=== PATIENT | male | born 1990 | race Caucasian/White ===

== ENCOUNTER → 2024-07-10 13:13 | Outpatient (BNVA) | payer OTHER, SELFPAY | PROVIDERS: Family Provider Nurse Practitioner Family; PCP Nurse Practitioner Family; Visit Provider Nurse Practitioner Family | DX: M47.896 Other spondylosis, lumbar region (principal) | CPT/HCPCS: 72100 ==

== ENCOUNTER 2024-07-18 15:55 | Outpatient (CLI) | payer OTHER, SELFPAY ==
--- NOTE | 2024-07-18 16:00 | MR_ITS ---
WS: [id number] MRI LUMBAR SPINE NONCONTRAST TECHNIQUE: Sagittal T1, T2 and STIR imaging. Axial T1 and T2 imaging. CLINICAL INFORMATION: M54.31 - Sciatica, right side COMPARISON: None. FINDINGS: Mild lumbar curve. No acute compression. Disc bulging worse at L5-S1 with a RIGHT subarticular protru marcio. Impingement on the traversing RIGHT S1 nerve root. Disc material measures approximately 6.7 mm in AP dimension. L1-L2: Mild facet arthropathy. L2-L3: Mild facet arthropathy. L3-L4: Mild annular bulging. Tiny annular tear. Slight effacement of the ventral thecal sac. Impingem ent on the LEFT subarticular recess and traversing LEFT L4 nerve root. Mild facet arthropathy. Forame n are patent. L4-L5: Mild annular bulging. Moderate facet arthropathy. Spinal canal is patent. Small bilateral fora ryan protrusions with mild RIGHT greater than LEFT foraminal narrowing. L5-S1: Prominent RIGHT paracentral protrusion impinges the traversing RIGHT RIGHT S1 nerve root in th e subarticular recess. Recommend correlation RIGHT S1 nerve root symptoms. Foramen are patent. Visualized pelvic bony structures: Normal. Paravertebral soft tissues: Normal. MR/MR lumbar spine wo con* [id number] IMPRESSION: 1. Prominent RIGHT subarticular protrusion L5-S1 impinges the traversing S1 ne rve root in the subarticular recess. Disc material measures 6.7 mm. Recommend c orrelation RIGHT S1 nerve root symptoms. 2. Mild annular bulging L3-4 with a small annular fissure. Slight impingement on the LEFT subarticular recess.
== END 2024-07-18 15:56 | disposition home or self-care (01) ==
LOC: RAD 15:55
PROVIDERS: Family Provider Nurse Practitioner Family; PCP Nurse Practitioner Family; Visit Provider Nurse Practitioner Family
DX: M54.31 Sciatica, right side (principal); R20.0 Anesthesia of skin; R20.2 Paresthesia of skin; M47.896 Other spondylosis, lumbar region; M51.369 Other intervertebral disc degeneration, lumbar region without mention of lumbar back pain or lower extremity pain; R68.89 Other general symptoms and signs; M51.27 Other intervertebral disc displacement, lumbosacral region; R93.89 Abnormal findings on diagnostic imaging of other specified body structures; M43.8X6 Other specified deforming dorsopathies, lumbar region; M51.26 Other intervertebral disc displacement, lumbar region
CPT/HCPCS: 72148

== ENCOUNTER → 2025-02-12 13:21 | Outpatient (BNVA) | payer OTHER, SELFPAY | PROVIDERS: Family Provider Nurse Practitioner Family; PCP Nurse Practitioner Family; Visit Provider Nurse Practitioner Family | DX: R53.83 Other fatigue (principal) | CPT/HCPCS: 80053; 84443; 85025; 86618; 86666; 86757 ==

== ENCOUNTER 2025-02-26 05:00 | Outpatient (RCR) | payer OTHER, SELFPAY | END 2025-03-27 23:59 | disposition home or self-care (01) | LOC: TPT 05:00 | PROVIDERS: Visit Provider Nurse Practitioner Family | DX: M54.50 Low back pain, unspecified (principal); M51.26 Other intervertebral disc displacement, lumbar region; M54.16 Radiculopathy, lumbar region; M54.31 Sciatica, right side | CPT/HCPCS: 97110; 97161 ==

== ENCOUNTER 2025-04-18 10:08 | Outpatient (RCR) | payer OTHER, SELFPAY | END 2025-04-27 23:59 | disposition home or self-care (01) | LOC: TPT 10:08 | PROVIDERS: PCP Nurse Practitioner Family; Visit Provider Nurse Practitioner Family | DX: M54.50 Low back pain, unspecified (principal); M51.26 Other intervertebral disc displacement, lumbar region; M54.16 Radiculopathy, lumbar region | CPT/HCPCS: 97110 ==